=== PATIENT | male | born 1980 | race Asian ===

== ENCOUNTER → 2017-06-28 | Outpatient (CLI) | payer BC ==
[2017-06-28 11:38] LABS: CARBON DIOXIDE 25 mEq/L (21-32); CHLORIDE 100 mEq/L (98-107)
== END | disposition home or self-care (01) ==
LOC: LAB 09:33
PROVIDERS: ATTEND Internal Medicine
DX: Z00.01 Encounter for general adult medical examination with abnormal findings (principal); B18.1 Chronic viral hepatitis B without delta-agent
CPT/HCPCS: 36415; 80053; 82105; 83036; 84443; 87517

== ENCOUNTER → 2017-11-23 | Outpatient (CLI) | payer BC | END | disposition home or self-care (01) | LOC: US 08:26 | PROVIDERS: ATTEND Nurse Practitioner Family | DX: B19.10 Unspecified viral hepatitis B without hepatic coma (principal); K80.20 Calculus of gallbladder without cholecystitis without obstruction; R63.4 Abnormal weight loss | CPT/HCPCS: 76700 ==

== ENCOUNTER → 2018-07-23 | Outpatient (CLI) | payer BC ==
[2018-07-23 10:09] LABS: EOSINOPHILS % 3.2 % (0.0-5.0); HEMATOCRIT. 44.9 % (42.0-52.0); HEMOGLOBIN. 15.5 g/dL (14.0-18.0); LYMPHOCYTES % 38.5 % (20.0-50.0); MEAN CORPUSCULAR HEMOGLOBIN 32.1 pg (28.0-32.0); MEAN CORPUSCULAR VOLUME 93.2 fL (80.0-94.0); MEAN PLATELET VOLUME 7.3 fl (7.4-10.4); MONOCYTES % 10.5 % (2.0-8.0); NEUTROPHILS % 46.8 % (40.0-76.0); PLATELET 185 x1000/uL (130-400); RED BLOOD CELL COUNT 4.82 mill/uL (4.7-6.1); RED CELL DISTRIBUTION WIDTH 12.3 % (11.6-14.6)
[2018-07-23 10:38] LABS: CHLORIDE 107 mEq/L (98-107)
[2018-07-23 10:47] LABS: LDL CHOLESTEROL 77 mg/dL (5-100)
[2018-07-23 10:48] LABS: HDL CHOLESTEROL 40 mg/dL (40-59)
== END | disposition home or self-care (01) ==
LOC: LAB 09:40
PROVIDERS: ATTEND Internal Medicine
DX: Z13.1 Encounter for screening for diabetes mellitus (principal); I10 Essential (primary) hypertension; B18.1 Chronic viral hepatitis B without delta-agent
CPT/HCPCS: 36415; 80053; 80061; 83036; 85025; 87517

== ENCOUNTER → 2018-12-14 | Outpatient (CLI) | payer BC ==
[2018-12-14 07:52] LABS: HEPATITIS B SURFACE AB 3.6 mIU/mL
[2018-12-14 08:03] LABS: CHLORIDE 109 mEq/L (98-107)
[2018-12-14 15:10] LABS: HEPATITIS B SURFACE ANTIGEN REACTIVE PEND CONFIR
[2018-12-15 08:14] LABS: HBSAG SCREEN Positive (Negative); HEPATITIS B CORE ANTIBODY Positive (Negative)
[2018-12-18 04:11] LABS: 25-HYDROXY VITAMIN D3 43 ng/mL (.)
== END | disposition home or self-care (01) ==
LOC: LAB 06:22
PROVIDERS: ATTEND Internal Medicine
DX: I10 Essential (primary) hypertension (principal); B18.1 Chronic viral hepatitis B without delta-agent; E66.3 Overweight
CPT/HCPCS: 36415; 82105; 82306; 86704; 86705; 86706; 86803; 87340; 87517